=== PATIENT | male | born 1990 | race Caucasian/White ===

== ENCOUNTER 2016-03-01 23:14 | Emergency (ER) | payer BC ==
[2016-03-01] MEDS ORDERED: SODIUM CHLORIDE 0.9% 1,000 ML IV ONE (23:37)
[2016-03-01] MEDS ORDERED: ACETAMINOPHEN TAB 500 MG TAB PO STA (23:37)
[2016-03-01] MEDS ORDERED: diphenhydrAMINE 50 MG/ML 1 ML VIAL IVP STA (23:37)
[2016-03-01] MEDS ORDERED: METOCLOPRAMIDE 5 MG/ML 2 ML VIAL IVP STA (23:37)
--- NOTE | 2016-03-01 23:53 | ED ---
Headache HPI - General Chief Complaint: Headache Stated Complaint: Headache/Dizzy Time Seen by Provider: 03/01/16 23:33 Mode of arrival: ambulatory Limitations: no limitations - History of Present Illness Initial Comments: This is a 25-year-old male who presents emergency department for generalized headache, generalized body aches, cough. He states is been going on for the whole day. He denies any fevers or chills at home. Been taking Aleve however this did not improve his symptoms. He denies any neck pain. No photophobia or phonophobia. No upper or surgery symptoms. No dysuria or hematuria. No nausea , vomiting, or diarrhea. No other complaints. - Related Data Home Medications Medication Instructions Recorded Confirmed [id number] 2 tab PO Q4HR PRN 03/01/16 03/01/16 [Excedrin] Previous Rx's Medication Instructions Recorded Doxycycline Monohydrate [Monodox] 100 mg PO Q12HR #14 cap 03/02/16 Naproxen 500 mg PO Q12HR #30 tab 03/02/16 Allergies Allergy/AdvReac Type Severity Reaction Status Date / Time No Known Allergies Allergy Verified 03/01/16 23:51 Review of Systems ROS Statement: Those systems with pertinent positive or pertinent negative responses have been documented in the HPI. ROS Other: All systems not noted in ROS Statement are negative. Past Medical History Past Medical History: No Reported History History of Any Multi-Drug Resistant Organisms: None Reported Past Surgical History: Adenoidectomy, Tonsillectomy Past Anesthesia/Blood Transfusion Reactions: No Reported Reaction Past Psychological History: No Psychological Hx Reported Smoking Status: Current every day smoker Past Alcohol Use History: Occasional Past Drug Use History: None Reported General Exam - General Exam Comments Initial Comments: Constitutional: Awake alert Appears comfortable Head: Normocephalic atraumatic Eyes: no conjunctival injection No scleral icterus EOMI ENT: TMs clear bilaterally, oropharynx is mildly erythematous without exudate, no rhinorrhea or rhinitis Neck: No JVD Supple, no meningismus Heart: Regular rate rhythm normal S1-S2 no murmurs Lungs: Clear to auscultation bilaterally No wheezing No rales Abdomen: Soft nondistended nontender Extremities: Non edematous DP pulses intact Radial pulses intact Neuro: A&Ox3 No focal neurologic deficits Psych: Appropriate mood and affect Limitations: no limitations Course Vital Signs 03/01/16 03/01/16 23:22 23:23 Temperature 98.6 F 100.7 F H Pulse Rate 112 H Respiratory 20 Rate Blood Pressure 115/57 O2 Sat by Pulse 98 Oximetry Medical Decision Making - Medical Decision Making This is a 25-year-old male who presents emergency department for headache, cough , generalized body aches for the last day. The patient did have a temperature when he arrived. He had no focal neurologic deficits. No signs of meningismus on examination. He was awake and alert and oriented 3. Blood work did show a mild leukocytosis at 11.1. Influenza negative. Radiologist said chest x-ray was negative. Chest x-ray was suspicious for a right middle lobe infiltrate on my read. With his productive cough at bedside and decided that it would be best treated for community acquired pneumonia. I gave him a dose of doxycycline here and I'm going to send him on doxycycline twice a day. The patient stated that his headache had completely resolved after medications and he felt much improved. He can follow up with his primary doctor. Told to take Naprosyn and Tylenol at home for headache. Told to return if he has any worsening or changing symptoms. All questions were answered. - Lab Data Result diagrams: 03/02/16 00:00 03/02/16 00:00 Lab Results 03/02/16 03/02/16 03/02/16 Range/Units 00:00 00:00 00:00 WBC 11.1 H (3.8-10.6) k/uL RBC 5.55 (4.30-5.90) m/uL Hgb 17.2 (13.0-17.5) gm/dL Hct 49.2 (39.0-53.0) % MCV 88.5 (80.0-100.0) fL MCH 31.0 (25.0-35.0) pg MCHC 35.1 (31.0-37.0) g/dL RDW 13.1 (11.5-15.5) % Plt Count 209 (150-450) k/uL Neutrophils % 89 % Lymphocytes % 4 % Monocytes % 6 % Eosinophils % 0 % Basophils % 0 % Neutrophils # 9.8 H (1.3-7.7) k/uL Lymphocytes # 0.4 L (1.0-4.8) k/uL Monocytes # 0.7 (0-1.0) k/uL Eosinophils # 0.1 (0-0.7) k/uL Basophils # 0.0 (0-0.2) k/uL Sodium 140 (137-145) mmol/L Potassium 4.2 (3.5-5.1) mmol/L Chloride 99 (98-107) mmol/L Carbon Dioxide 27 (22-30) mmol/L Anion Gap 14 mmol/L BUN 13 (9-20) mg/dL Creatinine 1.10 (0.66-1.25) mg/dL Est GFR (MDRD) Af Amer >60 (>60 ml/min/1.73 sqM) Est GFR (MDRD) Non-Af >60 (>60 ml/min/1.73 sqM) Glucose 133 H (74-99) mg/dL Calcium 9.2 (8.4-10.2) mg/dL Total Bilirubin 1.0 (0.2-1.3) mg/dL AST 37 (17-59) U/L ALT 76 H (21-72) U/L Alkaline Phosphatase 44 (38-126) U/L Total Protein 7.3 (6.3-8.2) g/dL Albumin 4.7 (3.5-5.0) g/dL Influenza Type A RNA Not Detected (Not Detectd) Influenza Type B (PCR) Not Detected (Not Detectd) Disposition Clinical Impression: CAP (community acquired pneumonia) Disposition: HOME SELF-CARE Condition: Stable Instructions: Acute Headache (ED), Community Acquired Pneumonia (ED) Prescriptions: Doxycycline Monohydrate [Monodox] 100 mg PO Q12HR #14 cap Naproxen 500 mg PO Q12HR #30 tab Referrals: None,Stated [Primary Care Provider] - 1-2 days
[2016-03-02 00:14] LABS: CH 32.1; CHCM 36.4; HGB 17.2 gm/dL (13.0-17.5); RDW 13.1 % (11.5-15.5)
[2016-03-02 00:20] LABS: ALT 76 U/L (21-72); AST 37 U/L (17-59); Alkaline Phosphatase 44 U/L (38-126); Anion Gap 14 mmol/L; Blood Urea Nitrogen 13 mg/dL (9-20); Calcium 9.2 mg/dL (8.4-10.2); Carbon Dioxide 27 mmol/L (22-30); Chloride 99 mmol/L (98-107); Glucose 133 mg/dL (74-99); Non-African American GFR(MDRD) >60 (>60 ml/min/1.73 sqM); Potassium 4.2 mmol/L (3.5-5.1); Sodium 140 mmol/L (137-145); Total Protein 7.3 g/dL (6.3-8.2)
[2016-03-02 00:26] LABS: Basophils % (A) 0 %; Eosinophils # (A) 0.1 k/uL (0-0.7); Eosinophils % (A) 0 %; HCT 49.2 % (39.0-53.0); HDW 2.79; Luc # (Auto) 0.05; Luc % (Auto) 1; Lymphocytes # (A) 0.4 k/uL (1.0-4.8); Lymphocytes % (A) 4 %; MCHC 35.1 g/dL (31.0-37.0); MCV 88.5 fL (80.0-100.0); Mean Platelet Volume 7.1; Monocytes # (A) 0.7 k/uL (0-1.0); Monocytes % (A) 6 %; Neutrophils # (A) 9.8 k/uL (1.3-7.7); Neutrophils % (A) 89 %; RBC 5.55 m/uL (4.30-5.90); WBC 11.1 k/uL (3.8-10.6); WBC (Perox) 11.08
[2016-03-02] MEDS ORDERED: KETOROLAC 30 MG/ML 1 ML VIAL IVP STA (00:50)
[2016-03-02] MEDS ORDERED: DOXYCYCLINE 50 MG CAP PO STA (01:19)
--- NOTE | 2016-03-02 01:22 | XR ---
EXAMINATION TYPE: XR chest 2V DATE OF EXAM: 03/02/2016 12:59 AM COMPARISON: 10/19/2010 HISTORY: Cough and fever TECHNIQUE: Frontal and lateral views of the chest are obtained. FINDINGS: Heart and mediastinum are normal. Lungs are clear. Diaphragm is normal. Bony thorax and so ft tissues appear normal. IMPRESSION: Normal chest. No change.
[2016-03-02 01:50] VITALS: BP 133/78; PULSE 87; RESP 18; TEMP 98
== END 2016-03-02 01:50 | disposition home or self-care (01) ==
LOC: EC 23:14
DX: J18.9 Pneumonia, unspecified organism (principal); F17.200 Nicotine dependence, unspecified, uncomplicated
CPT/HCPCS: 36415; 80053; 85025; 87502; 71020; 99284; 96374; 96375 ×2; 96361; J1200; J2765; J1885

== ENCOUNTER 2017-06-10 01:33 | Emergency (ER) | payer BC, OTHER ==
[2017-06-10] MEDS ORDERED: IBUPROFEN 600 MG TAB PO STA (01:41)
[2017-06-10] MEDS ORDERED: SODIUM CHLORIDE 0.9% 1,000 ML IV ONE (01:41)
[2017-06-10] MEDS ORDERED: ACETAMINOPHEN TAB 500 MG TAB PO STA (01:41)
--- NOTE | 2017-06-10 01:44 | ED ---
General Adult HPI - General Stated complaint: Vomiting Time Seen by Provider: 06/10/17 01:35 Source: RN notes reviewed - History of Present Illness Initial comments: This is a 26-year-old male who presents emergency Department complaining that he has generalized body aches feels warm and has been coughing quite a bit. Patient also mentions sore throat. Patient states he coughed so hard today that he was coughing up quite a bit of phlegm. Patient states he is not short of breath and does not have any chest pain. Patient states it does hurt in his upper abdomen when he coughs but not when he is not coughing. Patient denies any specific area of abdominal pain. Patient denies any diarrhea. Patient told triage he vomited but he states it's really just phlegm from coughing so hard. Patient also has a mild headache. Patient has no neck stiffness - Related Data Previous Rx's Medication Instructions Recorded Azithromycin [Zithromax Tri-Brandan] 500 mg PO DAILY #3 tab 06/10/17 Allergies Allergy/AdvReac Type Severity Reaction Status Date / Time No Known Allergies Allergy Verified 06/10/17 02:55 Review of Systems ROS Statement: Those systems with pertinent positive or pertinent negative responses have been documented in the HPI. ROS Other: All systems not noted in ROS Statement are negative. Past Medical History Past Medical History: No Reported History History of Any Multi-Drug Resistant Organisms: None Reported Past Surgical History: Adenoidectomy, Tonsillectomy Past Anesthesia/Blood Transfusion Reactions: No Reported Reaction Past Psychological History: No Psychological Hx Reported Smoking Status: Current every day smoker Past Alcohol Use History: Occasional Past Drug Use History: None Reported General Exam - General Exam Comments Initial Comments: GENERAL: Patient is well-developed and well-nourished. Patient is nontoxic and well- hydrated and is in mild distress. ENT: Neck is soft and supple. No significant lymphadenopathy is noted. Oropharynx is clear. Moist mucous membranes. Neck has full range of motion without eliciting any pain. EYES: The sclera were anicteric and conjunctiva were pink and moist. Extraocular movements were intact and pupils were equal round and reactive to light. Eyelids were unremarkable. PULMONARY: Patient has some expiratory wheezing. Patient admits he is a smoker. CARDIOVASCULAR: Patient is tachycardic at about 120 beats a minute. ABDOMEN: Soft and nontender with normal bowel sounds. No palpable organomegaly was noted. There is no palpable pulsatile mass. SKIN: Skin is clear with no lesions or rashes and otherwise unremarkable. NEUROLOGIC: Patient is alert and oriented x3. Cranial nerves II through XII are grossly intact. Motor and sensory are also intact. Normal speech, volume and content. Symmetrical smile. MUSCULOSKELETAL: Normal extremities with adequate strength and full range of motion. No lower extremity swelling or edema. No calf tenderness. LYMPHATICS: No significant lymphadenopathy is noted PSYCHIATRIC: Normal psychiatric evaluation. Normal interpersonal interactions appears functionally intact in deals appropriately with others. No signs of depression. No signs of anxiety. Course Vital Signs 06/10/17 06/10/17 06/10/17 01:53 02:31 02:46 Temperature 102.8 F H 102.8 F H Pulse Rate 117 H 112 H Respiratory 20 18 20 Rate Blood Pressure 144/71 O2 Sat by Pulse 96 95 Oximetry 06/10/17 06/10/17 06/10/17 02:56 03:28 04:11 Temperature 102 F H 101.8 F H Pulse Rate 111 H 109 H Respiratory 18 20 Rate Blood Pressure 112/73 108/56 O2 Sat by Pulse 96 95 Oximetry 06/10/17 04:43 Temperature 99.7 F H Pulse Rate 99 Respiratory Rate Blood Pressure O2 Sat by Pulse 95 Oximetry Medical Decision Making - Lab Data Result diagrams: 06/10/17 01:50 06/10/17 01:50 Lab Results 06/10/17 06/10/17 06/10/17 Range/Units 01:50 01:50 02:02 WBC 11.1 H (3.8-10.6) k/uL RBC 5.48 (4.30-5.90) m/uL Hgb 16.5 (13.0-17.5) gm/dL Hct 47.2 (39.0-53.0) % MCV 86.1 (80.0-100.0) fL MCH 30.0 (25.0-35.0) pg MCHC 34.9 (31.0-37.0) g/dL RDW 13.2 (11.5-15.5) % Plt Count 205 (150-450) k/uL Neutrophils % 83 % Lymphocytes % 5 % Monocytes % 8 % Eosinophils % 3 % Basophils % 0 % Neutrophils # 9.2 H (1.3-7.7) k/uL Lymphocytes # 0.6 L (1.0-4.8) k/uL Monocytes # 0.8 (0-1.0) k/uL Eosinophils # 0.3 (0-0.7) k/uL Basophils # 0.0 (0-0.2) k/uL Sodium 145 (137-145) mmol/L Potassium 3.8 (3.5-5.1) mmol/L Chloride 104 (98-107) mmol/L Carbon Dioxide 24 (22-30) mmol/L Anion Gap 17 mmol/L BUN 12 (9-20) mg/dL Creatinine 0.90 (0.66-1.25) mg/dL Est GFR (CKD-EPI)AfAm >90 (>60 ml/min/1.73 sqM) Est GFR (CKD-EPI)NonAf >90 (>60 ml/min/1.73 sqM) Glucose 101 H (74-99) mg/dL Calcium 9.5 (8.4-10.2) mg/dL Total Bilirubin 1.1 (0.2-1.3) mg/dL AST 42 (17-59) U/L ALT 68 (21-72) U/L Alkaline Phosphatase 48 (38-126) U/L Total Protein 7.4 (6.3-8.2) g/dL Albumin 4.9 (3.5-5.0) g/dL Influenza Type A RNA Not Detected (Not Detectd) Influenza Type B (PCR) Not Detected (Not Detectd) Group A Strep Rapid (Negative) 06/10/17 Range/Units 02:02 WBC (3.8-10.6) k/uL RBC (4.30-5.90) m/uL Hgb (13.0-17.5) gm/dL Hct (39.0-53.0) % MCV (80.0-100.0) fL MCH (25.0-35.0) pg MCHC (31.0-37.0) g/dL RDW (11.5-15.5) % Plt Count (150-450) k/uL Neutrophils % % Lymphocytes % % Monocytes % % Eosinophils % % Basophils % % Neutrophils # (1.3-7.7) k/uL Lymphocytes # (1.0-4.8) k/uL Monocytes # (0-1.0) k/uL Eosinophils # (0-0.7) k/uL Basophils # (0-0.2) k/uL Sodium (137-145) mmol/L Potassium (3.5-5.1) mmol/L Chloride (98-107) mmol/L Carbon Dioxide (22-30) mmol/L Anion Gap mmol/L BUN (9-20) mg/dL Creatinine (0.66-1.25) mg/dL Est GFR (CKD-EPI)AfAm (>60 ml/min/1.73 sqM) Est GFR (CKD-EPI)NonAf (>60 ml/min/1.73 sqM) Glucose (74-99) mg/dL Calcium (8.4-10.2) mg/dL Total Bilirubin (0.2-1.3) mg/dL AST (17-59) U/L ALT (21-72) U/L Alkaline Phosphatase (38-126) U/L Total Protein (6.3-8.2) g/dL Albumin (3.5-5.0) g/dL Influenza Type A RNA (Not Detectd) Influenza Type B (PCR) (Not Detectd) Group A Strep Rapid Negative (Negative) Disposition Clinical Impression: Bronchitis Disposition: HOME SELF-CARE Instructions: Acute Bronchitis (ED) Prescriptions: Azithromycin [Zithromax Tri-Brandan] 500 mg PO DAILY #3 tab Is patient prescribed a controlled substance at d/c from ED?: No Referrals: Mckenna Vaz MD [Primary Care Provider] - 1-2 days Time of Disposition: 04:46
[2017-06-10] MEDS ORDERED: ONDANSETRON 4 MG/2 ML VIAL IVP STA (01:51)
[2017-06-10 02:10] LABS: Basophils % (A) 0 %; Eosinophils # (A) 0.3 k/uL (0-0.7); Eosinophils % (A) 3 %; HCT 47.2 % (39.0-53.0); HGB 16.5 gm/dL (13.0-17.5); Lymphocytes # (A) 0.6 k/uL (1.0-4.8); Lymphocytes % (A) 5 %; MCHC 34.9 g/dL (31.0-37.0); MCV 86.1 fL (80.0-100.0); Mean Platelet Volume 7.5; Monocytes # (A) 0.8 k/uL (0-1.0); Monocytes % (A) 8 %; Neutrophils # (A) 9.2 k/uL (1.3-7.7); Neutrophils % (A) 83 %; Platelet Count 205 k/uL (150-450); RBC 5.48 m/uL (4.30-5.90); RDW 13.2 % (11.5-15.5); WBC 11.1 k/uL (3.8-10.6)
--- NOTE | 2017-06-10 02:10 | XR ---
EXAM: XR Chest, 2 Views CLINICAL HISTORY: ITS.REASON XR Reason: Difficulty breathing TECHNIQUE: Frontal and lateral views of the chest. COMPARISON: 03/02/16 FINDINGS: Lungs: No consolidation. Mild airway thickening. Pleural space: No effusion. No pneumothorax. Heart: Unremarkable. No cardiomegaly. Mediastinum: Unremarkable. Bones/joints: Unremarkable. IMPRESSION: No acute cardiopulmonary process. Mild airway thickening, query bronchiolitis.
[2017-06-10 02:13] LABS: ALT 68 U/L (21-72); AST 42 U/L (17-59); Albumin 4.9 g/dL (3.5-5.0); Alkaline Phosphatase 48 U/L (38-126); Anion Gap 17 mmol/L; Blood Urea Nitrogen 12 mg/dL (9-20); Calcium 9.5 mg/dL (8.4-10.2); Carbon Dioxide 24 mmol/L (22-30); Chloride 104 mmol/L (98-107); Glucose 101 mg/dL (74-99); Potassium 3.8 mmol/L (3.5-5.1); Sodium 145 mmol/L (137-145); Total Bilirubin 1.1 mg/dL (0.2-1.3); Total Protein 7.4 g/dL (6.3-8.2)
[2017-06-10] MEDS ORDERED: cefTRIAXone IN SWFI 1,000 MG/10 ML SYRINGE IVP STA (02:34)
[2017-06-10 04:13] VITALS: RESP 20
[2017-06-10 04:44] VITALS: PULSE 99; TEMP 99.7
[2017-06-10 05:03] VITALS: BP 115/68
== END 2017-06-10 05:03 | disposition home or self-care (01) ==
LOC: EC 01:33
DX: J40 Bronchitis, not specified as acute or chronic (principal); F17.200 Nicotine dependence, unspecified, uncomplicated
CPT/HCPCS: 36415; 80053; 85025; 87040; 87081; 87430; 87502; 71046; 99284; 96374; 96375; 96361; J2405; J0696; 87077; 87186

== ENCOUNTER 2017-09-23 05:28 | Emergency (ER) | payer OTHER ==
[2017-09-23 05:34] VITALS: BP 113/67; PULSE 101; RESP 18
--- NOTE | 2017-09-23 05:36 | ED ---
General Adult HPI - General Chief complaint: Upper Respiratory Infection Stated complaint: ENT Time Seen by Provider: 09/23/17 05:36 Source: patient Mode of arrival: ambulatory Limitations: no limitations - History of Present Illness Initial comments: 26-year-old male presents to ER with complaints of cough and subjective fever. Patient reports that the cough for couple of days, he began feeling like he had a fever yesterday, he was evaluated an outside emergency Department advised to take Sudafed. He reports at that time no chest x-ray or lab work was performed. Patient reports that he did have some coughing so hard that he vomited today denies any nausea or abdominal pain. Patient denies any sick contacts but does report he has 23-year-old home. No one else in the home is sick. - Related Data Previous Rx's Medication Instructions Recorded Azithromycin [Zithromax Tri-Brandan] 500 mg PO DAILY #3 tab 06/10/17 Ibuprofen [Motrin] 800 mg PO TID #30 tab 09/23/17 RX: Azithromycin [Zithromax] 0 mg PO DIRECTED #6 tab 09/23/17 Allergies Allergy/AdvReac Type Severity Reaction Status Date / Time No Known Allergies Allergy Verified 09/23/17 05:34 Review of Systems ROS Statement: Those systems with pertinent positive or pertinent negative responses have been documented in the HPI. ROS Other: All systems not noted in ROS Statement are negative. Constitutional: Reports: fever, chills ENT: Reports: throat pain Respiratory: Reports: cough. Denies: dyspnea, wheezes Cardiovascular: Denies: chest pain, palpitations Endocrine: Reports: fatigue Gastrointestinal: Reports: vomiting. Denies: nausea Musculoskeletal: Denies: back pain Skin: Denies: rash, lesions Neurological: Denies: headache, weakness Psychiatric: Denies: anxiety, depression Hematological/Lymphatic: Denies: easy bleeding, easy bruising Past Medical History Past Medical History: No Reported History History of Any Multi-Drug Resistant Organisms: None Reported Past Surgical History: Adenoidectomy, Appendectomy, Tonsillectomy Past Anesthesia/Blood Transfusion Reactions: No Reported Reaction Past Psychological History: No Psychological Hx Reported Smoking Status: Current every day smoker Past Alcohol Use History: Occasional Past Drug Use History: None Reported General Exam Limitations: no limitations General appearance: alert, in no apparent distress Course Vital Signs 09/23/17 09/23/17 05:31 05:45 Temperature 99.0 F 101.6 F H Pulse Rate 101 H Respiratory 18 Rate Blood Pressure 113/67 O2 Sat by Pulse 96 Oximetry Medical Decision Making - Medical Decision Making Patient was seen and evaluated patient is fully vaccinated and did receive his pertussis vaccine during his 's 3 years ago Patient with fever and cough, did have posttussive emesis today Patient evaluating at outside facility, no chest x-ray was performed and the patient was diagnosed with cheese or upper respiratory infection Sudafed and discharged home She returns today with fever, tachycardia and minimally productive cough I have a high suspicion for possible pneumonia Chest x-ray were ordered Labs with of mild leukocytosis neutrophilia, chest x-ray with concern for infiltrate. We'll treat with azithromycin. Motrin when necessary for fever. Results discussed with patient, and for discharge home with oral antibiotics and antipyretics was discussed. Patient is agreeable. All questions pertaining care were answered and return parameters were discussed. Home in stable condition. - Lab Data Result diagrams: 09/23/17 06:30 09/23/17 06:30 Lab Results 09/23/17 09/23/17 Range/Units 06:30 06:30 WBC 11.6 H (3.8-10.6) k/uL RBC 5.35 (4.30-5.90) m/uL Hgb 16.5 (13.0-17.5) gm/dL Hct 46.7 (39.0-53.0) % MCV 87.3 (80.0-100.0) fL MCH 30.9 (25.0-35.0) pg MCHC 35.4 (31.0-37.0) g/dL RDW 13.6 (11.5-15.5) % Plt Count 216 (150-450) k/uL Neutrophils % 80 % Lymphocytes % 9 % Monocytes % 8 % Eosinophils % 2 % Basophils % 1 % Neutrophils # 9.2 H (1.3-7.7) k/uL Lymphocytes # 1.0 (1.0-4.8) k/uL Monocytes # 0.9 (0-1.0) k/uL Eosinophils # 0.3 (0-0.7) k/uL Basophils # 0.1 (0-0.2) k/uL Sodium 139 (137-145) mmol/L Potassium 3.8 (3.5-5.1) mmol/L Chloride 105 (98-107) mmol/L Carbon Dioxide 26 (22-30) mmol/L Anion Gap 8 mmol/L BUN 13 (9-20) mg/dL Creatinine 0.92 (0.66-1.25) mg/dL Est GFR (CKD-EPI)AfAm >90 (>60 ml/min/1.73 sqM) Est GFR (CKD-EPI)NonAf >90 (>60 ml/min/1.73 sqM) Glucose 105 H (74-99) mg/dL Calcium 8.7 (8.4-10.2) mg/dL Total Bilirubin 1.2 (0.2-1.3) mg/dL AST 35 (17-59) U/L ALT 70 (21-72) U/L Alkaline Phosphatase 42 (38-126) U/L Total Protein 6.4 (6.3-8.2) g/dL Albumin 4.2 (3.5-5.0) g/dL Disposition Clinical Impression: Upper respiratory infection, Pneumonia Disposition: HOME SELF-CARE Condition: Good Instructions: Upper Respiratory Infection (ED) Prescriptions: RX: Azithromycin [Zithromax] 0 mg PO DIRECTED #6 tab Ibuprofen [Motrin] 800 mg PO TID #30 tab Is patient prescribed a controlled substance at d/c from ED?: No Referrals: Mckenna Vaz MD [Primary Care Provider] - 1-2 days Time of Disposition: 06:55
[2017-09-23 05:45] VITALS: TEMP 101.6
[2017-09-23] MEDS ORDERED: IBUPROFEN 800 MG TAB PO STA (06:20)
[2017-09-23] MEDS ORDERED: SODIUM CHLORIDE 0.9% 1,000 ML IV ONE (06:20)
[2017-09-23 06:48] LABS: Basophils # (A) 0.1 k/uL (0-0.2); Basophils % (A) 1 %; Eosinophils # (A) 0.3 k/uL (0-0.7); Eosinophils % (A) 2 %; HCT 46.7 % (39.0-53.0); HGB 16.5 gm/dL (13.0-17.5); Lymphocytes % (A) 9 %; MCH 30.9 pg (25.0-35.0); MCHC 35.4 g/dL (31.0-37.0); MCV 87.3 fL (80.0-100.0); Mean Platelet Volume 6.8; Monocytes # (A) 0.9 k/uL (0-1.0); Monocytes % (A) 8 %; Neutrophils # (A) 9.2 k/uL (1.3-7.7); Neutrophils % (A) 80 %; Platelet Count 216 k/uL (150-450); RBC 5.35 m/uL (4.30-5.90); RDW 13.6 % (11.5-15.5); WBC 11.6 k/uL (3.8-10.6)
[2017-09-23 06:59] LABS: ALT 70 U/L (21-72); AST 35 U/L (17-59); Albumin 4.2 g/dL (3.5-5.0); Alkaline Phosphatase 42 U/L (38-126); Anion Gap 8 mmol/L; Blood Urea Nitrogen 13 mg/dL (9-20); Calcium 8.7 mg/dL (8.4-10.2); Carbon Dioxide 26 mmol/L (22-30); Chloride 105 mmol/L (98-107); Glucose 105 mg/dL (74-99); Potassium 3.8 mmol/L (3.5-5.1); Sodium 139 mmol/L (137-145); Total Bilirubin 1.2 mg/dL (0.2-1.3); Total Protein 6.4 g/dL (6.3-8.2)
--- NOTE | 2017-09-23 07:23 | XR ---
EXAM: XR Chest, 2 Views CLINICAL HISTORY: cough, fever TECHNIQUE: Frontal and lateral views of the chest. COMPARISON: No relevant prior studies available. FINDINGS: Lungs: Unremarkable. No consolidation. Pleural space: Unremarkable. No pleural effusions. No pneumothorax. Heart: Unremarkable. No cardiomegaly. Mediastinum: Unremarkable. Bones/joints: Unremarkable. IMPRESSION: No acute cardiopulmonary process.
== END 2017-09-23 07:20 | disposition home or self-care (01) ==
LOC: EC 05:28
DX: J18.9 Pneumonia, unspecified organism (principal); J06.9 Acute upper respiratory infection, unspecified; F17.200 Nicotine dependence, unspecified, uncomplicated
CPT/HCPCS: 36415; 71046; 80053; 85025; 96360; 99283